=== PATIENT | male | born 1980 | race Two or more races ===

== ENCOUNTER 2018-01-27 18:32 | Emergency (ER) | payer BC ==
[2018-01-27] MEDS: IBUPROFEN 800 MG TAB PO (20:27)
[2018-01-27] MEDS: DIPHTH/TET/ACEL PERTUSS (ADULT) 0.5 ML VIAL IM* (20:28)
== END 2018-01-27 21:25 | disposition home or self-care (01) ==
LOC: FTE 18:32
DX: S91.332A Puncture wound without foreign body, left foot, initial encounter (principal); W45.0XXA Nail entering through skin, initial encounter; Y92.9 Unspecified place or not applicable; Z21 Asymptomatic human immunodeficiency virus [HIV] infection status; Z23 Encounter for immunization
CPT/HCPCS: 73630; 73630-LT; 90471; 90715; 99283-25

== ENCOUNTER 2018-08-19 15:43 | Inpatient (IN) | payer BC ==
[2018-08-19 16:15] LABS: ADD MAN DIFF? NO
[2018-08-19 16:21] LABS: BASOPHILS % 0.3 % (0.0-2.0); EOSINOPHILS # 0.1 10^3/ul (0.0-0.5); EOSINOPHILS % 1.6 % (0.0-7.0); HEMATOCRIT 47.3 % (42.0-52.0); HEMOGLOBIN 14.9 g/dl (14.0-18.0); LYMPHOCYTES # 2.7 10^3/ul (0.8-2.9); LYMPHOCYTES % 40.2 % (15.0-51.0); MEAN CORPUSCULAR HEMOGLOBIN 27.9 pg (29.0-33.0); MEAN CORPUSCULAR HGB CONC 31.5 g/dl (32.0-37.0); MEAN CORPUSCULAR VOLUME 88.6 fl (82.0-101.0); MEAN PLATELET VOLUME 9.5 fl (7.4-10.4); MONOCYTE # 0.6 10^3/ul (0.3-0.9); MONOCYTES % 9.2 % (0.0-11.0); NEUTROPHIL # 3.2 10^3/ul (1.6-7.5); NEUTROPHILS % 48.3 % (39.0-77.0); PLATELET COUNT 245 10^3/UL (140-415); RED BLOOD COUNT 5.34 10^6/ul (4.70-6.10); RED CELL DISTRIBUTION WIDTH 13.7 % (11.5-14.5)
[2018-08-19 16:21] LABS: WHITE BLOOD COUNT 6.7 10^3/ul (4.8-10.8)
[2018-08-19 16:39] LABS: ALANINE AMINOTRANSFERASE 25 IU/L (13-69); ALBUMIN 4.7 g/dl (3.3-4.9); ALBUMIN/GLOBULIN RATIO 1.34; ALKALINE PHOSPHATASE 72 IU/L (42-121); ANION GAP 13 (5-13); ASPARTATE AMINO TRANSFERASE 32 IU/L (15-46); BILIRUBIN,INDIRECT 0.5 mg/dl (0-1.1); BILIRUBIN,TOTAL 0.5 mg/dl (0.2-1.3); BLOOD UREA NITROGEN 13 mg/dl (7-20); CALCIUM 9.5 mg/dl (8.4-10.2); CARBON DIOXIDE 24 mmol/L (21-31); CHLORIDE 108 mmol/L (97-110); CREATININE 0.98 mg/dl (0.61-1.24); Estimated GFR > 60 mL/min (>60); GLUCOSE 121 mg/dl (70-220); LIPASE 20 U/L (23-300); POTASSIUM 3.7 mmol/L (3.5-5.1); SODIUM 145 mmol/L (135-144); TOTAL PROTEIN 8.2 g/dl (6.1-8.1)
[2018-08-19 16:40] LABS: ETHANOL < 10.0 mg/dl (0-0)
[2018-08-19 16:40] LABS: ACETAMINOPHEN < 10.0 ug/ml (10.0-30.0)
[2018-08-19] MEDS: LACTATED RINGER'S 1,000 ML IV ×2 (16:40→16:48)
[2018-08-19] MEDS: SOD CHLORIDE 0.9% 1,000 ML IV ×2 (16:40→16:49)
[2018-08-19] MEDS: ENALAPRILAT 1.25 MG INJ IV (16:41)
[2018-08-19] MEDS: CEFTRIAXONE 1 GM/50 ML (PMX) 50 ML IVPB (16:41)
[2018-08-19] MEDS: MAGNESIUM SULFATE 2 GM/50 ML 50 ML IVPB (16:41)
[2018-08-19 16:50] LABS: TROPONIN-I < 0.012 ng/ml (0.000-0.120)
[2018-08-19] MEDS: IPRATROPIUM (NEB) 0.5 MG/2.5 ML AMP INH (16:50)
[2018-08-19] MEDS: ALBUTEROL 0.5% (NEB) 2.5 MG/0.5 ML AMP INH (16:50)
[2018-08-19] MEDS: MIDAZOLAM (DRIP) 50 mg/50 mL 50 ML IV (16:59)
[2018-08-19 17:00] LABS: ADD UMIC YES; UR ASCORBIC ACID 40 mg/dL (NEGATIVE); UR BILIRUBIN (Dip) NEGATIVE (NEGATIVE); UR BLOOD (Dip) NEGATIVE (NEGATIVE); UR CLARITY SLIGHTLY CLOUDY (CLEAR); UR COLOR YELLOW (YELLOW); UR GLUCOSE (Dip) NEGATIVE (NEGATIVE); UR KETONES (Dip) TRACE mg/dL (NEGATIVE); UR LEUKOCYTE ESTERASE (Dip) NEGATIVE Leu/ul (NEGATIVE); UR MUCUS MODERATE /HPF (NONE SEEN); UR NITRITE (Dip) NEGATIVE (NEGATIVE); UR RBC 4 /HPF (0-5); UR SPECIFIC GRAVITY (Dip) 1.028 (1.003-1.030); UR TOTAL PROTEIN (Dip) 1+ mg/dl (NEGATIVE); UR UROBILINOGEN (Dip) 1+ mg/dL (NEGATIVE); UR WBC 3 /HPF (0-5)
[2018-08-19] MEDS: FENTAnyl (DRIP) 1000 mcg/100mL 100 ML IV (17:01)
[2018-08-19 17:05] LABS: AADO2 Arterial 198.7 mmHg (7.0-24.0); Allen Test ACCEPTAB; Arterial Base Excess -3.6 mmol/L (-3.0-3); Arterial Blood Gas Oxygen Sat 99.6 mmHG (95.0-98.0); Arterial COHb 0.3 % (0.0-3.0); Arterial Fraction of Oxyhgb 99.1 % (93.0-99.0); Arterial HCO3 22.4 mmol/L (22.0-26.0); Arterial MetHb 0.2 % (0.0-1.5); Arterial pCO2 44.2 mmhg (35-45); MODE VENT - AC; Site Right Radial
[2018-08-19 17:14] LABS: CREATINE KINASE 193 IU/L (23-200)
[2018-08-19 17:27] LABS: BARBITURATES Negative (NEGATIVE); BENZODIAZEPINES Negative (NEGATIVE); CANNABINOIDS Negative (NEGATIVE); COCAINE Negative (NEGATIVE); OPIATES Negative (NEGATIVE)
[2018-08-19 17:43] LABS: AMPHETAMINE/METHAMPHETAMINE POSITIVE (NEGATIVE)
[2018-08-19] MEDS ORDERED: NACL 0.9% 3 ML SYG IV (18:30)
[2018-08-19] MEDS ORDERED: ONDANSETRON 4 MG INJ IV (18:30)
[2018-08-19] MEDS ORDERED: SUCCINYLCHOLINE CHLORIDE 100 MG/5 ML SYG IV (20:00)
[2018-08-19] MEDS: VECURONIUM 10 MG VIAL IV (20:00)
[2018-08-19] MEDS: MIDAZOLAM 1 MG/ML 5 ML INJ IV (20:08)
[2018-08-19] MEDS: D5W-0.45 NACL + KCL 20 MEQ 1,000 ML IV (20:08)
[2018-08-20] MEDS: MIDAZOLAM (DRIP) 50 mg/50 mL 50 ML IV ×5 (01:01→19:13)
[2018-08-20] MEDS: FENTAnyl (DRIP) 1000 mcg/100mL 100 ML IV ×4 (01:03→20:09)
[2018-08-20] MEDS: D5W-0.45 NACL + KCL 20 MEQ 1,000 ML IV ×4 (03:49→19:45)
[2018-08-20 04:50] LABS: ADD MAN DIFF? NO
[2018-08-20 04:59] LABS: BASOPHILS % 0.1 % (0.0-2.0); EOSINOPHILS # 0.1 10^3/ul (0.0-0.5); EOSINOPHILS % 0.4 % (0.0-7.0); HEMATOCRIT 41.6 % (42.0-52.0); HEMOGLOBIN 13.2 g/dl (14.0-18.0); LYMPHOCYTES # 1.7 10^3/ul (0.8-2.9); MEAN CORPUSCULAR HEMOGLOBIN 27.8 pg (29.0-33.0); MEAN CORPUSCULAR HGB CONC 31.7 g/dl (32.0-37.0); MEAN CORPUSCULAR VOLUME 87.8 fl (82.0-101.0); MEAN PLATELET VOLUME 9.6 fl (7.4-10.4); MONOCYTE # 0.8 10^3/ul (0.3-0.9); MONOCYTES % 6.9 % (0.0-11.0); NEUTROPHIL # 9.4 10^3/ul (1.6-7.5); NEUTROPHILS % 78.3 % (39.0-77.0); PLATELET COUNT 213 10^3/UL (140-415); RED BLOOD COUNT 4.74 10^6/ul (4.70-6.10); RED CELL DISTRIBUTION WIDTH 13.9 % (11.5-14.5)
[2018-08-20 05:31] LABS: HEMOGLOBIN A1C 4.8 % (0-5.9)
[2018-08-20 06:10] LABS: ALANINE AMINOTRANSFERASE 32 IU/L (13-69); ALBUMIN 3.4 g/dl (3.3-4.9); ALKALINE PHOSPHATASE 53 IU/L (42-121); ANION GAP 9 (5-13); ASPARTATE AMINO TRANSFERASE 23 IU/L (15-46); BILIRUBIN,INDIRECT 0.8 mg/dl (0-1.1); BILIRUBIN,TOTAL 0.8 mg/dl (0.2-1.3); BLOOD UREA NITROGEN 8 mg/dl (7-20); CALCIUM 8.1 mg/dl (8.4-10.2); CARBON DIOXIDE 29 mmol/L (21-31); CHLORIDE 105 mmol/L (97-110); CREATININE 0.74 mg/dl (0.61-1.24); Estimated GFR > 60 mL/min (>60); GLUCOSE 124 mg/dl (70-220); MAGNESIUM 1.9 mg/dl (1.7-2.5); PHOSPHORUS 3.6 mg/dl (2.5-4.9); POTASSIUM 3.9 mmol/L (3.5-5.1); SODIUM 143 mmol/L (135-144)
[2018-08-20 06:26] LABS: FREE THYROXINE INDEX (Calc) 2.36 ug/ml (0.65-3.89); T3 UPTAKE 36.9 % (23.5-40.5); T4 (THYROXINE) 6.4 ug/dl (5.5-11.0)
[2018-08-20] MEDS: ENOXAPARIN 30 MG/0.3 ML SYG SC (08:09)
[2018-08-21] MEDS: MIDAZOLAM (DRIP) 50 mg/50 mL 50 ML IV ×5 (00:05→22:12)
[2018-08-21] MEDS: FENTAnyl (DRIP) 1000 mcg/100mL 100 ML IV ×4 (01:16→18:30)
[2018-08-21] MEDS: D5W-0.45 NACL + KCL 20 MEQ 1,000 ML IV ×2 (03:57→13:29)
[2018-08-21] MEDS ORDERED: PANTOPRAZOLE 40 MG INJ IV (06:00)
[2018-08-21 10:08] LABS: ADD MAN DIFF? NO
[2018-08-21 10:13] LABS: BASOPHILS % 0.3 % (0.0-2.0); EOSINOPHILS # 0.1 10^3/ul (0.0-0.5); EOSINOPHILS % 1.3 % (0.0-7.0); HEMATOCRIT 39.8 % (42.0-52.0); HEMOGLOBIN 12.3 g/dl (14.0-18.0); LYMPHOCYTES % 26.2 % (15.0-51.0); MEAN CORPUSCULAR HEMOGLOBIN 27.5 pg (29.0-33.0); MEAN CORPUSCULAR HGB CONC 30.9 g/dl (32.0-37.0); MEAN CORPUSCULAR VOLUME 88.8 fl (82.0-101.0); MEAN PLATELET VOLUME 9.5 fl (7.4-10.4); MONOCYTES % 12.6 % (0.0-11.0); NEUTROPHIL # 4.6 10^3/ul (1.6-7.5); NEUTROPHILS % 59.3 % (39.0-77.0); PLATELET COUNT 189 10^3/UL (140-415); RED BLOOD COUNT 4.48 10^6/ul (4.70-6.10); RED CELL DISTRIBUTION WIDTH 14.3 % (11.5-14.5)
[2018-08-21 10:13] LABS: WHITE BLOOD COUNT 7.7 10^3/ul (4.8-10.8)
[2018-08-21 10:30] LABS: ALANINE AMINOTRANSFERASE 26 IU/L (13-69); ALBUMIN 3.1 g/dl (3.3-4.9); ALBUMIN/GLOBULIN RATIO 1.06; ALKALINE PHOSPHATASE 47 IU/L (42-121); ANION GAP 4 (5-13); ASPARTATE AMINO TRANSFERASE 22 IU/L (15-46); BLOOD UREA NITROGEN 9 mg/dl (7-20); CALCIUM 8.2 mg/dl (8.4-10.2); CARBON DIOXIDE 27 mmol/L (21-31); CHLORIDE 103 mmol/L (97-110); CREATININE 0.87 mg/dl (0.61-1.24); Estimated GFR > 60 mL/min (>60); GLUCOSE 97 mg/dl (70-220); POTASSIUM 4.3 mmol/L (3.5-5.1); SODIUM 134 mmol/L (135-144)
[2018-08-21] MEDS: FAMOTIDINE 20 MG INJ IV ×2 (10:32→21:44)
[2018-08-21] MEDS: morphine 2 MG INJ IV ×2 (10:32→16:57)
[2018-08-21] MEDS: ENOXAPARIN 30 MG/0.3 ML SYG SC (10:38)
[2018-08-21] MEDS: PIPER-TAZO 3.375 GM IV (PMX) 100 ML IVPB ×2 (15:06→21:44)
[2018-08-22] MEDS: FENTAnyl (DRIP) 1000 mcg/100mL 100 ML IV ×3 (02:11→21:10)
[2018-08-22] MEDS: D5W-0.45 NACL + KCL 20 MEQ 1,000 ML IV ×2 (02:55→10:42)
[2018-08-22] MEDS: MIDAZOLAM (DRIP) 50 mg/50 mL 50 ML IV ×2 (02:55→12:20)
[2018-08-22] MEDS: PIPER-TAZO 3.375 GM IV (PMX) 100 ML IVPB ×3 (06:19→21:04)
[2018-08-22] MEDS: morphine 2 MG INJ IV (08:04)
[2018-08-22] MEDS: ENOXAPARIN 30 MG/0.3 ML SYG SC (09:05)
[2018-08-22] MEDS: FAMOTIDINE 20 MG INJ IV ×2 (10:41→21:04)
[2018-08-22] MEDS: DEXMEDETOMIDINE IN DEXTROSE 5% 50 ML IV (11:07)
[2018-08-23] MEDS: DEXMEDETOMIDINE IN DEXTROSE 5% 50 ML IV ×2 (00:05→09:48)
[2018-08-23] MEDS: FENTAnyl (DRIP) 1000 mcg/100mL 100 ML IV ×2 (02:58→08:30)
[2018-08-23] MEDS: PIPER-TAZO 3.375 GM IV (PMX) 100 ML IVPB ×3 (05:05→22:44)
[2018-08-23 05:41] LABS: ADD MAN DIFF? NO
[2018-08-23 05:46] LABS: WHITE BLOOD COUNT 6.6 10^3/ul (4.8-10.8)
[2018-08-23 05:46] LABS: BASOPHILS % 0.3 % (0.0-2.0); EOSINOPHILS # 0.1 10^3/ul (0.0-0.5); EOSINOPHILS % 1.2 % (0.0-7.0); HEMATOCRIT 36.5 % (42.0-52.0); HEMOGLOBIN 11.6 g/dl (14.0-18.0); LYMPHOCYTES # 1.8 10^3/ul (0.8-2.9); LYMPHOCYTES % 26.8 % (15.0-51.0); MEAN CORPUSCULAR HEMOGLOBIN 27.5 pg (29.0-33.0); MEAN CORPUSCULAR HGB CONC 31.8 g/dl (32.0-37.0); MEAN CORPUSCULAR VOLUME 86.5 fl (82.0-101.0); MONOCYTES % 15.3 % (0.0-11.0); NEUTROPHIL # 3.7 10^3/ul (1.6-7.5); NEUTROPHILS % 56.1 % (39.0-77.0); PLATELET COUNT 196 10^3/UL (140-415); RED BLOOD COUNT 4.22 10^6/ul (4.70-6.10); RED CELL DISTRIBUTION WIDTH 13.7 % (11.5-14.5)
[2018-08-23 06:11] LABS: ANION GAP 9 (5-13); BLOOD UREA NITROGEN 10 mg/dl (7-20); CALCIUM 8.7 mg/dl (8.4-10.2); CARBON DIOXIDE 29 mmol/L (21-31); CHLORIDE 101 mmol/L (97-110); Estimated GFR > 60 mL/min (>60); GLUCOSE 103 mg/dl (70-220); MAGNESIUM 1.9 mg/dl (1.7-2.5); PHOSPHORUS 4.8 mg/dl (2.5-4.9); POTASSIUM 4.4 mmol/L (3.5-5.1); SODIUM 139 mmol/L (135-144)
[2018-08-23] MEDS: FAMOTIDINE 20 MG INJ IV ×2 (08:49→21:16)
[2018-08-23] MEDS: ENOXAPARIN 30 MG/0.3 ML SYG SC (08:51)
[2018-08-23 10:13] LABS: AADO2 Arterial 48.1 mmHg (7.0-24.0); Allen Test ACCEPTAB; Arterial Base Excess 1.9 mmol/L (-3.0-3); Arterial Blood Gas Oxygen Sat 98.1 mmHG (95.0-98.0); Arterial COHb 0.5 % (0.0-3.0); Arterial Fraction of Oxyhgb 97.5 % (93.0-99.0); Arterial HCO3 27.1 mmol/L (22.0-26.0); Arterial MetHb 0.1 % (0.0-1.5); Arterial pCO2 44.9 mmhg (35-45); Blood Gas PS 10; MODE VENT - CPAP; Site Right Radial
[2018-08-24] MEDS: PIPER-TAZO 3.375 GM IV (PMX) 100 ML IVPB (05:40)
[2018-08-24] MEDS: LORAZEPAM 2 MG INJ IV (06:33)
[2018-08-24] MEDS: FAMOTIDINE 20 MG INJ IV (08:50)
[2018-08-24] MEDS: ENOXAPARIN 30 MG/0.3 ML SYG SC (08:56)
== END 2018-08-24 11:45 | disposition home or self-care (01) | DRG 917 ==
LOC: E/R 15:43 → MS1 08-23 21:52 → ICU 17:56
PROC: 5A1945Z Respiratory Ventilation, 24-96 Consecutive Hours (ICD-10-PCS; principal; 2018-08-19)
PROC: 0BH17EZ Insertion of Endotracheal Airway into Trachea, Via Natural or Artificial Opening (ICD-10-PCS; 2018-08-19)
DX: T43.621A Poisoning by amphetamines, accidental (unintentional), initial encounter (principal); J69.0 Pneumonitis due to inhalation of food and vomit; G92 Toxic encephalopathy; J96.02 Acute respiratory failure with hypercapnia; J96.01 Acute respiratory failure with hypoxia; E87.0 Hyperosmolality and hypernatremia; I10 Essential (primary) hypertension; E86.0 Dehydration
CPT/HCPCS: 31500; 36415; 36600; 70450; 71045; 80048; 80053; 80307; 81001; 82550; 82803; 83036; 83690; 83735; 84100; 84436; 84479; 84484; 85025; 87081; 93005; 94002; 94003; 94760; 94770; 96365; 96368; 96375; 99291-25

== ENCOUNTER 2018-08-29 16:02 | Emergency (ER) | payer BC ==
[2018-08-29 16:36] LABS: ADD MAN DIFF? NO
[2018-08-29] MEDS: LORAZEPAM 2 MG INJ IV ×3 (16:40→22:00)
[2018-08-29] MEDS: SOD CHLORIDE 0.9% 1,000 ML IV (16:40)
[2018-08-29 16:44] LABS: BASOPHILS % 0.4 % (0.0-2.0); EOSINOPHILS # 0.1 10^3/ul (0.0-0.5); EOSINOPHILS % 1.6 % (0.0-7.0); HEMATOCRIT 40.8 % (42.0-52.0); LYMPHOCYTES # 2.7 10^3/ul (0.8-2.9); LYMPHOCYTES % 32.3 % (15.0-51.0); MEAN CORPUSCULAR HEMOGLOBIN 27.3 pg (29.0-33.0); MEAN CORPUSCULAR HGB CONC 31.9 g/dl (32.0-37.0); MEAN CORPUSCULAR VOLUME 85.7 fl (82.0-101.0); MEAN PLATELET VOLUME 9.4 fl (7.4-10.4); MONOCYTE # 0.6 10^3/ul (0.3-0.9); MONOCYTES % 7.2 % (0.0-11.0); NEUTROPHIL # 4.8 10^3/ul (1.6-7.5); NEUTROPHILS % 58.4 % (39.0-77.0); PLATELET COUNT 363 10^3/UL (140-415); RED BLOOD COUNT 4.76 10^6/ul (4.70-6.10); RED CELL DISTRIBUTION WIDTH 13.5 % (11.5-14.5)
[2018-08-29 16:44] LABS: WHITE BLOOD COUNT 8.2 10^3/ul (4.8-10.8)
[2018-08-29 16:50] LABS: BARBITURATES Negative (NEGATIVE); BENZODIAZEPINES Negative (NEGATIVE); CANNABINOIDS Negative (NEGATIVE); COCAINE Negative (NEGATIVE); OPIATES Negative (NEGATIVE)
[2018-08-29 16:53] LABS: ADD UMIC NO; UR ASCORBIC ACID 40 mg/dL (NEGATIVE); UR BILIRUBIN (Dip) NEGATIVE (NEGATIVE); UR BLOOD (Dip) NEGATIVE (NEGATIVE); UR CLARITY SLIGHTLY CLOUDY (CLEAR); UR COLOR YELLOW (YELLOW); UR GLUCOSE (Dip) NEGATIVE (NEGATIVE); UR KETONES (Dip) NEGATIVE (NEGATIVE); UR LEUKOCYTE ESTERASE (Dip) NEGATIVE Leu/ul (NEGATIVE); UR MUCUS FEW /HPF (NONE SEEN); UR NITRITE (Dip) NEGATIVE (NEGATIVE); UR RBC 2 /HPF (0-5); UR SPECIFIC GRAVITY (Dip) 1.027 (1.003-1.030); UR TOTAL PROTEIN (Dip) NEGATIVE (NEGATIVE); UR UROBILINOGEN (Dip) 1+ mg/dL (NEGATIVE); UR WBC 1 /HPF (0-5)
[2018-08-29 17:01] LABS: ALANINE AMINOTRANSFERASE 22 IU/L (13-69); ALBUMIN 4.2 g/dl (3.3-4.9); ALKALINE PHOSPHATASE 65 IU/L (42-121); AMPHETAMINE/METHAMPHETAMINE POSITIVE (NEGATIVE); ANION GAP 9 (5-13); ASPARTATE AMINO TRANSFERASE 20 IU/L (15-46); BILIRUBIN,INDIRECT 0.4 mg/dl (0-1.1); BILIRUBIN,TOTAL 0.4 mg/dl (0.2-1.3); BLOOD UREA NITROGEN 17 mg/dl (7-20); CALCIUM 9.2 mg/dl (8.4-10.2); CARBON DIOXIDE 27 mmol/L (21-31); CHLORIDE 109 mmol/L (97-110); CREATININE 1.09 mg/dl (0.61-1.24); Estimated GFR > 60 mL/min (>60); GLUCOSE 93 mg/dl (70-220); POTASSIUM 3.9 mmol/L (3.5-5.1); SODIUM 145 mmol/L (135-144); TOTAL PROTEIN 7.7 g/dl (6.1-8.1)
[2018-08-29 17:02] LABS: ACETAMINOPHEN < 10.0 ug/ml (10.0-30.0); ETHANOL < 10.0 mg/dl (0-0); SALICYLATE < 1.0 mg/dl (5.0-30.0)
[2018-08-29 17:11] LABS: INR 1.04; PROTIME 13.7 Sec (11.9-14.9); PT RATIO 1.1
[2018-08-29 17:12] LABS: PARTIAL THROMBOPLASTIN TIME 30.8 Sec (23.0-35.0)
[2018-08-29] MEDS: OLANZAPINE 5 MG TAB PO (21:36)
[2018-08-29] MEDS: HALOPERIDOL 5 MG INJ IM (22:00)
[2018-08-29] MEDS: KETAMINE (50 MG/ML) 10 ML VIAL IV (22:37)
== END 2018-08-30 09:56 | disposition home or self-care (01) ==
LOC: E/R 08-30 09:56
DX: F15.10 Other stimulant abuse, uncomplicated (principal); R44.1 Visual hallucinations; R44.0 Auditory hallucinations; R40.2142 Coma scale, eyes open, spontaneous, at arrival to emergency department; R40.2242 Coma scale, best verbal response, confused conversation, at arrival to emergency department; R40.2362 Coma scale, best motor response, obeys commands, at arrival to emergency department; Z21 Asymptomatic human immunodeficiency virus [HIV] infection status; Z87.891 Personal history of nicotine dependence
CPT/HCPCS: 80053; 80307; 81001; 81003; 85025; 85610; 85730; 96361; 96372; 96374; 96375; 96376; 99284-25